=== PATIENT | female | born 1950 | race African-American/Black ===

== ENCOUNTER 2017-12-15 11:09 | Emergency (ER) | payer OTHER, MEDICAID ==
[~2017-12-15] VITALS: Ht 162.6 cm; Wt 64.9 kg
[2017-12-15 11:23] VITALS: BP 130/94
== END 2017-12-15 15:30 | disposition home or self-care (01) ==
LOC: ER 11:09
DX: H10.9 Unspecified conjunctivitis (principal); M19.90 Unspecified osteoarthritis, unspecified site; E11.9 Type 2 diabetes mellitus without complications; I10 Essential (primary) hypertension; F17.210 Nicotine dependence, cigarettes, uncomplicated; Z88.5 Allergy status to narcotic agent; Z86.73 Personal history of transient ischemic attack (TIA), and cerebral infarction without residual deficits

== ENCOUNTER 2020-01-14 13:16 | Inpatient (IN) | payer OTHER, MEDICAID ==
[~2020-01-14] VITALS: Ht 162.6 cm; Wt 60.0 kg
[2020-01-14 14:19] LABS: Basophils # (auto) 0 10 ^3/uL (0-0.2); Basophils % (auto) 0.6 % (0.0-2.0); Eosinophils # (auto) 0 10 ^3/uL (0-0.8); Eosinophils % (auto) 0.7 % (0.0-7.0); Hematocrit 44.2 % (36.0-46.0); Hemoglobin 14.6 g/dL (12.2-16.2); Lymphocytes # (auto) 1.7 10 ^3/uL (0.4-5.4); Lymphocytes % (auto) 24.4 % (10.0-50.0); Mean Corpuscular Hemoglobin 29.9 pg (28.0-32.0); Mean Corpuscular Volume 90.7 fL (80.0-100.0); Monocytes # (auto) 0.3 10 ^3/uL (0-1.3); Monocytes % (auto) 3.9 % (0.0-12.0); Neutrophils # (auto) 4.9 10 ^3/uL (1.6-8.6); Neutrophils % (auto) 70.4 % (37.0-80.0); Nucleated Red Blood Cells % 0.1 %; Platelet Count (auto) 250 10^3/uL (140-450); Red Blood Cells 4.87 10^6/uL (4.0-5.20); Red Cell Distribution Width 16.1 % (11.8-14.3); White Blood Cell 6.9 10^3/uL (4.4-10.8)
[2020-01-14 14:33] LABS: Albumin 3.8 g/dL (3.4-5.0); Anion Gap 7 (5-15); Blood Urea Nitrogen 7 mg/dL (7-18); Calcium 8.7 mg/dL (8.5-10.1); Carbon Dioxide 21 mmol/L (21-32); Chloride 113 mmol/L (98-107); Glucose 104 mg/dL (74-106); Potassium 3.3 mmol/L (3.5-5.1); Sodium 141 mmol/L (136-145)
[2020-01-14 14:40] LABS: Alanine Aminotransferase 33 U/L (13-56); Alkaline Phosphatase 138 U/L (45-117); Aspartate Aminotransferase 19 U/L (15-37); BUN/Creatinine Ratio 10.3; Bilirubin, Total 0.6 mg/dL (0.2-1.0); GFR African American 111 mL/min; GFR Non-African American 91 mL/min; Total Protein 8.1 g/dL (6.4-8.2)
[2020-01-14 16:07] LABS: Urine Bacteria FEW /hpf (None Seen); Urine Blood Negative /uL (Negative); Urine Mucus FEW (None Seen); Urine Specific Gravity 1.013 (1.001-1.035); Urine WBC 7 /hpf (0 - 5)
[2020-01-14] MEDS ORDERED: cefTRIAXone 1GM/50ML D5W 50 ML IV ONE (16:30)
[2020-01-14] MEDS ORDERED: metroNIDAZOLE 500MG/100ML 100 ML IV ONE (16:30)
[2020-01-14] MEDS ORDERED: SODIUM CHLORIDE 0.9% 1,000 ML IVB ONE (16:30)
[2020-01-14] MEDS ORDERED: MORPHINE SULF INJ 2 MG/ML SYRINGE 1ML IV ONE (17:00)
[2020-01-14] MEDS ORDERED: ONDANSETRON HCL 4 MG/2 ML VIAL IV ONE (17:00)
[2020-01-14] MEDS ORDERED: PANTOPRAZOLE 40 MG/10 ML VIAL INJ IV ONE (17:45)
[2020-01-14] MEDS: POTASSIUM CHL 20MEQ/100ML 100 ML IV SCH ×2 (17:51→21:36)
[2020-01-14] MEDS ORDERED: ACETAMINOPHEN 325 MG TAB PO PRN (18:00)
[2020-01-14] MEDS ORDERED: MORPHINE SULF INJ 2 MG/ML SYRINGE 1ML IV PRN (18:00)
[2020-01-14] MEDS ORDERED: ONDANSETRON HCL 4 MG/2 ML VIAL IV PRN (18:00)
[2020-01-14] MEDS: SODIUM CHLORIDE 0.9% 1,000 ML IV SCH (18:32)
[2020-01-14] MEDS ORDERED: ACETAMINOPHEN 500 MG TAB PO PRN (19:15)
[2020-01-14 19:35] VITALS: BP 142/81
[2020-01-14] MEDS: FAMOTIDINE (10MG/ML) 2ML VL IV SCH (20:37)
[2020-01-14 22:09] LABS: Hematocrit 38.8 % (36.0-46.0)
[2020-01-14 22:13] VITALS: BP 142/81
[2020-01-15] MEDS ORDERED: PNEUMOCOCCAL VACC POLYS 25 MCG/0.5 ML VIAL IM ONE (00:15)
[2020-01-15] MEDS ORDERED: ATOR40TA52 PO (02:03)
[2020-01-15] MEDS ORDERED: ASPI-231 PO (02:03)
[2020-01-15] MEDS ORDERED: CHOL20007 OR (02:03)
[2020-01-15] MEDS ORDERED: GLIP5TAB12 PO (02:03)
[2020-01-15] MEDS ORDERED: FOLI1TAB6 PO (02:03)
[2020-01-15] MEDS ORDERED: NIFE1TAB30 PO (02:03)
[2020-01-15] MEDS ORDERED: ALEN70SO OR (02:03)
[2020-01-15] MEDS ORDERED: LISI-275 PO (02:03)
[2020-01-15] MEDS ORDERED: HYDR-4798 PO (02:03)
[2020-01-15] MEDS ORDERED: MAGN400T40 OR (02:03)
[2020-01-15] MEDS ORDERED: POTA10TA51 PO (02:03)
[2020-01-15] MEDS ORDERED: OMEP20TA PO (02:03)
[2020-01-15] MEDS ORDERED: METH2.5T PO (02:03)
[2020-01-15] MEDS: SODIUM CHLORIDE 0.9% 1,000 ML IV SCH ×3 (04:00→23:51)
[2020-01-15 05:00] VITALS: BP_SYST 129; BP_SYST 134; BP_DIAS 73; BP_DIAS 76
[2020-01-15 07:47] LABS: Basophils # (auto) 0.1 10 ^3/uL (0-0.2); Basophils % (auto) 1.3 % (0.0-2.0); Eosinophils # (auto) 0.1 10 ^3/uL (0-0.8); Eosinophils % (auto) 0.8 % (0.0-7.0); Hematocrit 39.8 % (36.0-46.0); Hemoglobin 13.3 g/dL (12.2-16.2); Lymphocytes # (auto) 2.3 10 ^3/uL (0.4-5.4); Lymphocytes % (auto) 34.3 % (10.0-50.0); Mean Corpuscular Hgb Conc. 33.4 g/dL (32.0-36.0); Mean Corpuscular Volume 89.9 fL (80.0-100.0); Monocytes # (auto) 0.4 10 ^3/uL (0-1.3); Monocytes % (auto) 6.3 % (0.0-12.0); Neutrophils # (auto) 3.9 10 ^3/uL (1.6-8.6); Neutrophils % (auto) 57.3 % (37.0-80.0); Nucleated Red Blood Cells % 0.3 %; Platelet Count (auto) 170 10^3/uL (140-450); Red Blood Cells 4.43 10^6/uL (4.0-5.20); Red Cell Distribution Width 15.8 % (11.8-14.3); White Blood Cell 6.8 10^3/uL (4.4-10.8)
[2020-01-15 08:05] LABS: Calcium 7.9 mg/dL (8.5-10.1); Potassium 3.4 mmol/L (3.5-5.1)
[2020-01-15 08:07] LABS: BUN/Creatinine Ratio 6.7
[2020-01-15 08:19] LABS: INR 1.08 (0.9-1.15); Partial Thromboplastin Time 25.1 sec (23.0-31.2)
[2020-01-15 09:00] VITALS: BP 137/80
[2020-01-15] MEDS: FAMOTIDINE (10MG/ML) 2ML VL IV SCH (09:44)
[2020-01-15 13:00] VITALS: BP 114/84
[2020-01-15] MEDS ORDERED: GOLYTELY 4L KIT PO ONE (13:00)
[2020-01-15 13:47] LABS: Hemoglobin 12.7 g/dL (12.2-16.2)
[2020-01-15] MEDS: levoFLOXacin 500MG 100 ML IV SCH (14:36)
[2020-01-15 16:00] VITALS: BP 144/92
[2020-01-15 21:39] VITALS: BP 151/86
[2020-01-16 04:40] VITALS: BP 157/94
[2020-01-16] MEDS ORDERED: GOLYTELY 4L KIT PO ONE (06:00)
[2020-01-16 06:51] LABS: Basophils # (auto) 0.1 10 ^3/uL (0-0.2); Eosinophils # (auto) 0.1 10 ^3/uL (0-0.8); Eosinophils % (auto) 1.3 % (0.0-7.0); Hematocrit 36.5 % (36.0-46.0); Hemoglobin 12.3 g/dL (12.2-16.2); Lymphocytes # (auto) 2.3 10 ^3/uL (0.4-5.4); Lymphocytes % (auto) 35.4 % (10.0-50.0); Mean Corpuscular Hemoglobin 30.5 pg (28.0-32.0); Mean Corpuscular Hgb Conc. 33.6 g/dL (32.0-36.0); Mean Corpuscular Volume 90.8 fL (80.0-100.0); Monocytes # (auto) 0.5 10 ^3/uL (0-1.3); Monocytes % (auto) 7.3 % (0.0-12.0); Neutrophils # (auto) 3.6 10 ^3/uL (1.6-8.6); Nucleated Red Blood Cells % 0.1 %; Platelet Count (auto) 203 10^3/uL (140-450); Red Blood Cells 4.02 10^6/uL (4.0-5.20); Red Cell Distribution Width 15.7 % (11.8-14.3); White Blood Cell 6.5 10^3/uL (4.4-10.8)
[2020-01-16 07:03] LABS: INR 1.11 (0.9-1.15); Partial Thromboplastin Time 25.3 sec (23.0-31.2)
[2020-01-16 07:15] LABS: BUN/Creatinine Ratio 6.1; Calcium 7.7 mg/dL (8.5-10.1)
[2020-01-16 08:36] VITALS: BP 111/70
[2020-01-16] MEDS ORDERED: diphenhdrAMINE HCL 50 MG/1 ML VL ONE (09:00)
[2020-01-16] MEDS ORDERED: SODIUM CHLORIDE LOCK 10 ML ONE (09:00)
[2020-01-16] MEDS ORDERED: FLUMAZENIL 0.1 MG/ML INJ 10ML MDV IV ONE (09:00)
[2020-01-16] MEDS ORDERED: NALOXONE HCL 0.4 MG/ML VIAL ONE (09:00)
[2020-01-16] MEDS: SODIUM CHLORIDE 0.9% 1,000 ML IV SCH (10:00)
[2020-01-16] MEDS: FAMOTIDINE (10MG/ML) 2ML VL IV SCH (10:00)
[2020-01-16] MEDS: levoFLOXacin 500MG 100 ML IV SCH (10:00)
[2020-01-16] MEDS: fentaNYL CITRATE 100 MCG/2 ML VL ONE ×2 (10:54→11:00)
[2020-01-16] MEDS: MIDAZOLAM HCL 5 MG/ML-1ML VIAL ONE ×2 (10:54→11:00)
[2020-01-16 11:52] VITALS: BP 154/86
[2020-01-16] MEDS ORDERED: CIPR-173 PO (14:45)
[2020-01-16] MEDS ORDERED: METR500T PO (14:45)
== END 2020-01-16 17:30 | disposition home or self-care (01) | DRG 378 ==
LOC: ER 13:16 → OVERFLOW 13:17 → WEST WING 20:00
PROVIDERS: ADMIT Hospitalist; ATTEND Hospitalist
PROC: 0DBN8ZX Excision of Sigmoid Colon, Via Natural or Artificial Opening Endoscopic, Diagnostic (ICD-10-PCS; principal; 2020-01-16 10:50)
DX: K62.5 Hemorrhage of anus and rectum (principal); K55.9 Vascular disorder of intestine, unspecified; E87.6 Hypokalemia; E11.9 Type 2 diabetes mellitus without complications; F17.210 Nicotine dependence, cigarettes, uncomplicated; Z20.828 Contact with and (suspected) exposure to other viral communicable diseases; I10 Essential (primary) hypertension; K57.30 Diverticulosis of large intestine without perforation or abscess without bleeding; K63.5 Polyp of colon; Z82.49 Family history of ischemic heart disease and other diseases of the circulatory system; Z86.73 Personal history of transient ischemic attack (TIA), and cerebral infarction without residual deficits; Z88.5 Allergy status to narcotic agent
CPT/HCPCS: 36415; 71045; 74176; 80048; 80053; 81001; 84484; 85014; 85018; 85025; 85610; 85730; 86850; 86900; 86901; 87426; 96365; 96367; 96375; C9113; G0378; J0696; J1956; J2250; J2405; J3480; J3490